=== PATIENT | male | born 1955 | race Caucasian/White ===

== ENCOUNTER 2016-08-31 02:08 | Emergency (ER) | payer OTHER ==
--- NOTE | 2016-08-31 02:38 | ED ---
Abdominal Pain HPI - General Chief Complaint: Abdominal Pain Stated Complaint: Back pain Time Seen by Provider: 08/31/16 02:21 Source: patient, RN notes reviewed Mode of arrival: ambulatory Limitations: no limitations - History of Present Illness Initial Comments: Patient is a 60-year-old male presents emergency room for evaluation of right- sided flank pain. Patient states he has a history of kidney stones. Patient states this feels similar to kidney stone. Patient states that last time he is in the emergency room he thought he had kidney stone pain but it was constipation. Patient states this pain does feel similar also. Patient states he has a normal bowel movement every morning. Patient states he had a normal bowel movement this morning. Patient denies trouble urinating, pain or burning during urination or blood in urine. Patient states when he woke up this morning he was having 10 out of 10 right-sided flank pain. Patient states the pain is now about a 1 out of 10 pain. Patient denies nausea or vomiting. Patient denies abdominal pain. Patient denies chest pain or shortness of breath. Patient denies headache or dizziness. Patient denies fevers or chills. - Related Data Home Medications Medication Instructions Recorded Confirmed Finasteride 5 mg PO DAILY 02/17/14 08/31/16 Risedronate Sodium [Actonel] 35 mg PO Q7DAYS 02/17/14 08/31/16 Allopurinol [Zyloprim] 300 mg PO DAILY 04/03/14 08/31/16 Escitalopram [Lexapro] 10 mg PO DAILY 04/03/14 08/31/16 Previous Rx's Medication Instructions Recorded Tamsulosin HCl [Flomax] 0.4 mg PO DAILY #30 cap 02/03/15 Allergies Allergy/AdvReac Type Severity Reaction Status Date / Time iodine Allergy Rash/Hives Verified 04/20/16 06:22 paper tape Allergy Rash/Hives Uncoded 04/20/16 06:22 Review of Systems ROS Statement: Those systems with pertinent positive or pertinent negative responses have been documented in the HPI. ROS Other: All systems not noted in ROS Statement are negative. Past Medical History Past Medical History: COPD, Pneumonia Additional Past Medical History / Comment(s): emphysema, kidney stones, osteoporosis, recent pneumonia History of Any Multi-Drug Resistant Organisms: None Reported Past Surgical History: Hernia Repair Additional Past Surgical History / Comment(s): vasectomy Past Anesthesia/Blood Transfusion Reactions: No Reported Reaction Past Psychological History: No Psychological Hx Reported Smoking Status: Current every day smoker Past Alcohol Use History: None Reported Past Drug Use History: None Reported General Exam - General Exam Comments Initial Comments: Sitting in exam room in no acute distress. Limitations: no limitations General appearance: alert, in no apparent distress Head exam: Present: atraumatic, normocephalic, normal inspection Eye exam: Present: normal appearance ENT exam: Present: normal exam Neck exam: Present: normal inspection Respiratory exam: Present: normal lung sounds bilaterally. Absent: respiratory distress Cardiovascular Exam: Present: regular rate, normal rhythm, normal heart sounds GI/Abdominal exam: Present: soft, normal bowel sounds. Absent: distended, tenderness, guarding, rebound, rigid Extremities exam: Present: normal inspection Back exam: Present: normal inspection, CVA tenderness (R). Absent: CVA tenderness (L) Neurological exam: Present: alert, oriented X3, CN II-XII intact, normal gait Psychiatric exam: Present: normal affect, normal mood Skin exam: Present: warm, dry, intact, normal color. Absent: rash Course Vital Signs 08/31/16 02:12 Temperature 97.0 F L Pulse Rate 60 Respiratory 18 Rate Blood Pressure 123/62 O2 Sat by Pulse 94 L Oximetry Medical Decision Making - Medical Decision Making Patient is a 60-year-old male presents to the emergency room for evaluation right-sided flank pain. Labs show no concerning findings. Urinalysis showed no concerning findings. KUB x-ray significant for mild amount of fecal material in the colon. Will place patient on magnesium citrate for constipation. Advised patient to follow-up with his primary care provider for reevaluation. Patient states he understands everything that was discussed with him. Return parameters discussed. Case discussed with Dr. Maxwell. - Lab Data Result diagrams: 08/31/16 03:42 08/31/16 03:42 Lab Results 08/31/16 08/31/16 08/31/16 Range/Units 03:42 03:42 03:42 WBC 6.3 (3.8-10.6) k/uL RBC 4.21 L (4.30-5.90) m/uL Hgb 14.4 (13.0-17.5) gm/dL Hct 41.5 (39.0-53.0) % MCV 98.5 (80.0-100.0) fL MCH 34.2 (25.0-35.0) pg MCHC 34.7 (31.0-37.0) g/dL RDW 13.2 (11.5-15.5) % Plt Count 136 L (150-450) k/uL Neutrophils % 70 % Lymphocytes % 18 % Monocytes % 5 % Eosinophils % 3 % Basophils % 1 % Neutrophils # 4.4 (1.3-7.7) k/uL Lymphocytes # 1.1 (1.0-4.8) k/uL Monocytes # 0.3 (0-1.0) k/uL Eosinophils # 0.2 (0-0.7) k/uL Basophils # 0.0 (0-0.2) k/uL Sodium 138 (137-145) mmol/L Potassium 4.1 (3.5-5.1) mmol/L Chloride 105 (98-107) mmol/L Carbon Dioxide 26 (22-30) mmol/L Anion Gap 7 mmol/L BUN 15 (9-20) mg/dL Creatinine 0.70 (0.66-1.25) mg/dL Est GFR (MDRD) Af Amer >60 (>60 ml/min/1.73 sqM) Est GFR (MDRD) Non-Af >60 (>60 ml/min/1.73 sqM) Glucose 95 (74-99) mg/dL Calcium 9.0 (8.4-10.2) mg/dL Total Bilirubin 0.4 (0.2-1.3) mg/dL AST 17 (17-59) U/L ALT 33 (21-72) U/L Alkaline Phosphatase 48 (38-126) U/L Total Protein 5.9 L (6.3-8.2) g/dL Albumin 3.6 (3.5-5.0) g/dL Urine Color Light Yellow Urine Appearance Clear (Clear) Urine pH 6.5 (5.0-8.0) Ur Specific [place] 1.008 (1.001-1.035) Urine Protein Negative (Negative) Urine Glucose (UA) Negative (Negative) Urine Ketones Negative (Negative) Urine Blood Negative (Negative) Urine Nitrate Negative (Negative) Urine Bilirubin Negative (Negative) Urine Urobilinogen <2.0 (<2.0) mg/dL Ur Leukocyte Esterase Negative (Negative) - Radiology Data Radiology results: report reviewed, image reviewed Disposition Clinical Impression: Constipation Disposition: HOME SELF-CARE Condition: Good Instructions: Constipation (ED), High Fiber Diet (ED) Additional Instructions: Drink plenty of water. Take magnesium citrate. Please follow up with primary care provider in 1-2 days. If any new symptom arises or symptoms worsen, return to ER as soon as possible. Referrals: Conner Diaz MD [Primary Care Provider] - 1-2 days Time of Disposition: 04:24
--- NOTE | 2016-08-31 03:22 | XR ---
EXAM: XR Abdomen, 1 View. CLINICAL HISTORY: Reason: pain TECHNIQUE: Frontal upright views of the abdomen/pelvis. COMPARISON: 04/20/16 plain films. FINDINGS: Gastrointestinal tract: There is again a [place] amount of stool present, without grossly dilated bowel loops nor free air seen on these upright images. Bones: Bones are stable including mild smoothly marginated depression of the L2 superior endplate. No acute fracture. IMPRESSION: No significant change since 04/20/16 exam, as above.
[2016-08-31 04:02] LABS: Basophils % (A) 1 %; CH 33.4; CHCM 34.1; Eosinophils # (A) 0.2 k/uL (0-0.7); Eosinophils % (A) 3 %; HCT 41.5 % (39.0-53.0); HDW 2.02; HGB 14.4 gm/dL (13.0-17.5); Luc % (Auto) 3; Lymphocytes # (A) 1.1 k/uL (1.0-4.8); Lymphocytes % (A) 18 %; MCH 34.2 pg (25.0-35.0); MCHC 34.7 g/dL (31.0-37.0); MCV 98.5 fL (80.0-100.0); Mean Platelet Volume 8.2; Monocytes # (A) 0.3 k/uL (0-1.0); Monocytes % (A) 5 %; Neutrophils # (A) 4.4 k/uL (1.3-7.7); Neutrophils % (A) 70 %; RBC 4.21 m/uL (4.30-5.90); RDW 13.2 % (11.5-15.5); WBC 6.3 k/uL (3.8-10.6); WBC (Perox) 6.32
[2016-08-31 04:07] LABS: Appearance,Urine Clear (Clear); Bilirubin,Urine Negative (Negative); Glucose,Urine (UA) Negative (Negative); Ketones,Urine Negative (Negative); Leukocyte Esterase,Urine Negative (Negative); Nitrite,Urine Negative (Negative); PH, Urine 6.5 (5.0-8.0); Protein,Urine Negative (Negative); Specific Gravity,Urine 1.008 (1.001-1.035); UA Billing (MACRO vs. MICRO) CHEM; Urobilinogen,Urine <2.0 mg/dL (<2.0)
[2016-08-31 04:13] LABS: ALT 33 U/L (21-72); AST 17 U/L (17-59); Alkaline Phosphatase 48 U/L (38-126); Anion Gap 7 mmol/L; Blood Urea Nitrogen 15 mg/dL (9-20); Carbon Dioxide 26 mmol/L (22-30); Chloride 105 mmol/L (98-107); Glucose 95 mg/dL (74-99); Non-African American GFR(MDRD) >60 (>60 ml/min/1.73 sqM); Potassium 4.1 mmol/L (3.5-5.1); Sodium 138 mmol/L (137-145); Total Bilirubin 0.4 mg/dL (0.2-1.3); Total Protein 5.9 g/dL (6.3-8.2)
[2016-08-31] MEDS ORDERED: MAGNESIUM CITRATE 296 ML BOTTLE PO ONE (04:24)
[2016-08-31] MEDS ORDERED: KETOROLAC 30 MG/ML 1 ML VIAL IVP STA (04:28)
[2016-08-31 04:47] VITALS: BP 126/74; PULSE 61; RESP 16; TEMP 97.2
== END 2016-08-31 04:47 | disposition home or self-care (01) ==
LOC: EC 02:08
DX: K59.00 Constipation, unspecified (principal); J44.9 Chronic obstructive pulmonary disease, unspecified; Z91.048 Other nonmedicinal substance allergy status; Z79.899 Other long term (current) drug therapy; F17.200 Nicotine dependence, unspecified, uncomplicated; Z87.01 Personal history of pneumonia (recurrent); Z87.442 Personal history of urinary calculi
CPT/HCPCS: 36415; 80053; 85025; 81003; 74000; 99284; 96374; J1885

== ENCOUNTER → 2017-03-20 | Outpatient (CLI) | payer OTHER ==
[2017-03-20 16:31] LABS: Anion Gap 8 mmol/L; Blood Urea Nitrogen 13 mg/dL (9-20); Calcium 8.9 mg/dL (8.4-10.2); Carbon Dioxide 25 mmol/L (22-30); Chloride 102 mmol/L (98-107); Glucose 75 mg/dL (74-99); Magnesium 1.9 mg/dL (1.6-2.3); Non-African American GFR(MDRD) >60 (>60 ml/min/1.73 sqM); Potassium 4.2 mmol/L (3.5-5.1); Sodium 135 mmol/L (137-145); Uric Acid 3.3 mg/dL (3.5-8.5)
[2017-03-20 17:19] LABS: Hepatitis C Virus IgG Ab Negative (Negative); Hepatitis C Virus IgG Index 0.01
[2017-03-20 17:30] LABS: Prostate Specific Antigen 0.28 ng/mL (0.00-4.00)
== END ==
LOC: LABWHC1 15:23
PROVIDERS: ATTEND Family Medicine
DX: K59.00 Constipation, unspecified (principal); F41.9 Anxiety disorder, unspecified; M54.89 Other dorsalgia; M85.80 Other specified disorders of bone density and structure, unspecified site; B36.9 Superficial mycosis, unspecified
CPT/HCPCS: 36415; 80048; 82306; 83735; 84153; 84443; 84550; 86803

== ENCOUNTER → 2017-03-23 | Outpatient (CLI) | payer OTHER ==
--- NOTE | 2017-03-23 16:35 | BD ---
EXAMINATION TYPE: MG DEXA axial skeleton. DATE OF EXAM: 03/23/2017 COMPARISON: NONE CLINICAL HISTORY: 61-year-old male M85.80 DISORDER OF BONE DENSITY AND STRUCTURE Height: 5 FT 8 IN Weight: 130 FRAX RISK QUESTIONS: Alcohol (3 or more units per day): NO Family History (Parent hip fracture): YES Glucocorticoids (More than 3mos): NO (Ex: prednisone, prednisolone, methylprednisolone, dexamethasone, and hydrocortisone). History of Fracture in Adulthood: YES Secondary Osteoporosis: 1. Type 1 Diabetes: NO 2. Hyperthyroidism: NO 3. Menopause before 45: NA 4. Malnutrition: NO 5. Chronic liver disease: NO Rheumatoid Arthritis: NO Current Tobacco Use: YES RISK FACTORS HISTORY OF: History of Wrist Fracture: RT WRIST When: 1992 Active: YES MEDICATIONS: Osteoporosis Medications: YES Which medication: ACTONEL How Lon YRS Additional Medications: VIT D ,FENOSTAT,ACTONEL,FLOMAX, ANTI DEPRESSANT, ALLPURINAL Additional History: FRACTURED RT TIB/FIB 2011 EXAM MEASUREMENTS: Bone mineral densitometry was performed using the [employer] System. Bone mineral density as measured about the Lumbar spine is: ----- L1-L4(G/cm2): 0.772 T Score Values are as follows: ----- L2: -3.0 ----- L3: -3.0 ----- L4: -3.8 ----- L1-L4: -3.4 Bone mineral density has: Decreased -1.7 % since study of: 2013 Bone mineral density about the R hip (g/cm2): 0.721 Bone mineral density about the L hip (g/cm2): 0.714 T Score values are as follows: -----R Neck: -2.3 -----L Neck: -2.3 -----R Total: -3.0 -----L Total: -2.7 Bone mineral density has: Decreased -0.5% since study of: 2013 IMPRESSION: Osteoporosis (T Score less than -2.5) as noted by T Score values at the There is increased fracture risk and therapy is usually indicated based on age. Re-Screen 1-2 years. NOTE: T-SCORE=SD OF THE YOUNG ADULT MEAN.
== END | disposition home or self-care (01) ==
LOC: RADBDWWP 15:34
PROVIDERS: ATTEND Family Medicine
DX: M81.0 Age-related osteoporosis without current pathological fracture (principal)
CPT/HCPCS: 77080

== ENCOUNTER 2017-07-12 06:49 | Emergency (ER) | payer OTHER ==
[2017-07-12] MEDS ORDERED: HYDROcodone/APAP 5-325MG 1 EACH TAB PO STA (07:45)
[2017-07-12] MEDS ORDERED: KETOROLAC 60 MG/2 ML VIAL IM STA (07:45)
[2017-07-12] MEDS ORDERED: HYDROmorphone 2 MG/ML 1 ML SYRINGE IM STA (08:42)
--- NOTE | 2017-07-12 08:42 | ED ---
General Adult HPI - General Chief complaint: Back Pain/Injury Stated complaint: lower back pain Time Seen by Provider: 07/12/17 07:15 Source: patient, RN notes reviewed, old records reviewed Mode of arrival: ambulatory Limitations: no limitations - History of Present Illness Initial comments: This is a 61-year-old male the ER for evaluation regarding back pain. Chronic back pain. No recent injury or trauma. Patient states he was at work today had severe spasm in his lower back unable to walk unable to ambulate, severely increasing pain. No loss of bowel or bladder no neurological deficit. Patient has no modifying factors for pain. He states it is coming down is not moving around. Patient denies any recent fevers - Related Data Home Medications Medication Instructions Recorded Confirmed Finasteride 5 mg PO DAILY 02/17/14 07/12/17 Risedronate Sodium [Actonel] 35 mg PO [place] 02/17/14 07/12/17 Allopurinol [Zyloprim] 300 mg PO DAILY 04/03/14 07/12/17 Escitalopram [Lexapro] 10 mg PO DAILY 04/03/14 07/12/17 Cholecalciferol (Vitamin D3) 2,000 unit PO DAILY 07/12/17 07/12/17 [Vitamin D3] Docusate [Colace] 100 mg PO DAILY 07/12/17 07/12/17 Gabapentin (Unknown Dose) 1 tab PO ONCE 07/12/17 07/12/17 Previous Rx's Medication Instructions Recorded Tamsulosin HCl [Flomax] 0.4 mg PO DAILY #30 cap 02/03/15 Allergies Allergy/AdvReac Type Severity Reaction Status Date / Time iodine Allergy Rash/Hives Verified 07/12/17 08:00 paper tape Allergy Rash/Hives Uncoded 07/12/17 07:07 Review of Systems ROS Statement: Those systems with pertinent positive or pertinent negative responses have been documented in the HPI. ROS Other: All systems not noted in ROS Statement are negative. Past Medical History Past Medical History: COPD, Pneumonia Additional Past Medical History / Comment(s): emphysema, kidney stones, osteoporosis, recent pneumonia History of Any Multi-Drug Resistant Organisms: None Reported Past Surgical History: Hernia Repair Additional Past Surgical History / Comment(s): vasectomy Past Anesthesia/Blood Transfusion Reactions: No Reported Reaction Past Psychological History: No Psychological Hx Reported Smoking Status: Current every day smoker Past Alcohol Use History: None Reported Past Drug Use History: None Reported General Exam Limitations: no limitations Course Vital Signs 07/12/17 07:02 Temperature 97 F L Pulse Rate 64 Respiratory 18 Rate Blood Pressure 99/64 O2 Sat by Pulse 98 Oximetry - Reevaluation(s) Reevaluation #1: 07/12/17 08:42 Patient is still having back pain after initial medications Reevaluation #2: 07/12/17 08:42 Patient's pain is now improved Medical Decision Making - Medical Decision Making 58 female the ER for evaluation regarding severe back pain. Acute on chronic back pain. At this point patient has adequate pain relief and can be discharged home Disposition Clinical Impression: Mechanical back pain, Strain of lumbar region Disposition: HOME SELF-CARE Condition: Good Instructions: Chronic Back Pain (ED), Acute Low Back Pain (ED) Referrals: Conner Diaz MD [Primary Care Provider] - 1-2 days
[2017-07-12 09:04] VITALS: RESP 16
[2017-07-12 09:39] VITALS: BP 116/58; PULSE 69; TEMP 97.9
== END 2017-07-12 09:38 | disposition home or self-care (01) ==
LOC: EC 06:49
DX: S39.012A Strain of muscle, fascia and tendon of lower back, initial encounter (principal); F17.200 Nicotine dependence, unspecified, uncomplicated; Z79.899 Other long term (current) drug therapy; Z91.048 Other nonmedicinal substance allergy status; Z88.8 Allergy status to other drugs, medicaments and biological substances
CPT/HCPCS: 99284; 96372 ×2; J1170; J1885

== ENCOUNTER → 2017-08-09 | Outpatient (CLI) | payer OTHER ==
--- NOTE | 2017-08-10 09:18 | XR ---
EXAM TYPE: LUMBAR SPINE X RAY SERIES COMPARISON: NONE HISTORY: Chronic lower back pain TECHNIQUE: 4 views are submitted. FINDINGS: Alignment is anatomic. The pedicles are intact. The transverse processes are intact. There is no s pondylolysis or spondylolisthesis. There is a compression fracture of L2 superior endplate likely ch ronic. Degenerative disc disease at L1-L2, L4-5 and L5-S1 with facet arthropathy. Diffuse osteopenia noted. IMPRESSION: 1. Multilevel degenerative disc disease. 2. Probable chronic superior endplate compression fracture L2. Correlate with MRI as clinically warra nted.
== END | disposition home or self-care (01) ==
LOC: RADXRMAIN 15:24
PROVIDERS: ATTEND Family Medicine
DX: M51.16 Intervertebral disc disorders with radiculopathy, lumbar region (principal)
CPT/HCPCS: 72110

== ENCOUNTER → 2017-08-14 | Outpatient (CLI) | payer OTHER ==
[2017-08-14 16:36] LABS: Calcium 9.6 mg/dL (8.4-10.2)
== END | disposition home or self-care (01) ==
LOC: LABWHC1 15:33
PROVIDERS: ATTEND Family Medicine
DX: M81.0 Age-related osteoporosis without current pathological fracture (principal)
CPT/HCPCS: 36415; 82310; 82565

== ENCOUNTER → 2017-09-21 | Outpatient (CLI) | payer OTHER ==
[~2017-09-21] MED LIST: EPINEPHrine 1 MG/ML 1 ML AMP SQ PRN; HYDROCORTISONE SUCCINATE 100 MG/2 ML VIAL IV PRN; SODIUM CHLORIDE 0.9% 500 ML in EMPTY BAG 1 BAG IV PRN; ZOLEDRONIC ACID 5 MG in SODIUM CHLORIDE 0.9% 100 ML IV NR; diphenhydrAMINE 50 MG/ML 1 ML VIAL IVP NR
[2017-09-21 15:34] VITALS: BP 114/68; PULSE 58; RESP 16; TEMP 97.5
== END | disposition home or self-care (01) ==
LOC: PROCWHC3 15:23
PROVIDERS: ATTEND Family Medicine
DX: M81.0 Age-related osteoporosis without current pathological fracture (principal); Z91.048 Other nonmedicinal substance allergy status
CPT/HCPCS: 96365; J3489

== ENCOUNTER → 2017-12-20 | Outpatient (CLI) | payer OTHER ==
[2017-12-20 16:19] LABS: Basophils % (A) 1 %; Eosinophils # (A) 0.2 k/uL (0-0.7); Eosinophils % (A) 4 %; HCT 41.7 % (39.0-53.0); HGB 13.9 gm/dL (13.0-17.5); Lymphocytes # (A) 1.6 k/uL (1.0-4.8); Lymphocytes % (A) 34 %; MCH 33.3 pg (25.0-35.0); MCHC 33.3 g/dL (31.0-37.0); MCV 100.1 fL (80.0-100.0); Mean Platelet Volume 7.5; Monocytes # (A) 0.3 k/uL (0-1.0); Monocytes % (A) 7 %; Neutrophils # (A) 2.3 k/uL (1.3-7.7); Neutrophils % (A) 51 %; Platelet Count 169 k/uL (150-450); RBC 4.16 m/uL (4.30-5.90); RDW 13.4 % (11.5-15.5); WBC 4.6 k/uL (3.8-10.6)
[2017-12-20 16:34] LABS: ALT 27 U/L (21-72); AST 18 U/L (17-59); Albumin 3.8 g/dL (3.5-5.0); Alkaline Phosphatase 45 U/L (38-126); Anion Gap 8 mmol/L; Blood Urea Nitrogen 14 mg/dL (9-20); Calcium 8.9 mg/dL (8.4-10.2); Carbon Dioxide 27 mmol/L (22-30); Chloride 100 mmol/L (98-107); Glucose 101 mg/dL (74-99); Potassium 4.6 mmol/L (3.5-5.1); Sodium 135 mmol/L (137-145); Total Bilirubin 0.4 mg/dL (0.2-1.3); Total Protein 5.9 g/dL (6.3-8.2)
[2017-12-20 16:49] LABS: T4, Free (Free Thyroxine) 1.18 ng/dL (0.78-2.19)
== END | disposition home or self-care (01) ==
LOC: LABWHC1 15:26
PROVIDERS: ATTEND Family Medicine
DX: J44.9 Chronic obstructive pulmonary disease, unspecified (principal); Z79.899 Other long term (current) drug therapy
CPT/HCPCS: 36415; 80053; 82306; 83655; 84439; 84443; 85025

== ENCOUNTER 2018-05-11 11:04 | Emergency (ER) | payer OTHER ==
[2018-05-11 11:55] VITALS: RESP 18; TEMP 97.5
[2018-05-11] MEDS ORDERED: SODIUM CHLORIDE 0.9% 1,000 ML IV STA (12:27)
--- NOTE | 2018-05-11 12:46 | ED ---
General Adult HPI - General Chief complaint: Dizziness Stated complaint: near syncope Time Seen by Provider: 05/11/18 12:09 Source: patient, RN notes reviewed Mode of arrival: EMS Limitations: no limitations - History of Present Illness Initial comments: Patient 62-year-old male presenting to the emergency room today with a chief complaint of abdominal pain that started this morning when he was at work. He does admit to a sharp pain located middle of the abdomen. He states that he went and sat on his bosses office. He states he got diaphoretic and felt lightheaded. He states that he did pass gas which made him feel better. He states he then had a bowel movement was loose. He states it did make him feel better. He states is unsure if assault that he ate last night. He states pain is improved at this time. Patient denies any other complaints or symptoms currently. Patient denies any recent fever, chills, shortness of breath, chest pain, back pain, vomiting, numbness or tingling, dysuria or hematuria, constipation, headaches or visual changes, or any other complaints. - Related Data Home Medications Medication Instructions Recorded Confirmed Finasteride 5 mg PO DAILY 02/17/14 05/11/18 Allopurinol [Zyloprim] 300 mg PO DAILY 04/03/14 05/11/18 Escitalopram [Lexapro] 10 mg PO DAILY 04/03/14 05/11/18 Cholecalciferol (Vitamin D3) 2,000 unit PO DAILY 07/12/17 05/11/18 [Vitamin D3] Docusate [Colace] 100 mg PO DAILY 07/12/17 05/11/18 Calcium Carbonate [Tums] 1,000 mg PO DAILY 05/11/18 05/11/18 Previous Rx's Medication Instructions Recorded Tamsulosin HCl [Flomax] 0.4 mg PO DAILY #30 cap 02/03/15 Allergies Allergy/AdvReac Type Severity Reaction Status Date / Time iodine Allergy Rash/Hives Verified 05/11/18 11:32 paper tape Allergy Rash/Hives Uncoded 09/21/17 15:26 Review of Systems ROS Statement: Those systems with pertinent positive or pertinent negative responses have been documented in the HPI. ROS Other: All systems not noted in ROS Statement are negative. Past Medical History Past Medical History: COPD, Pneumonia Additional Past Medical History / Comment(s): emphysema, kidney stones, osteoporosis, recent pneumonia History of Any Multi-Drug Resistant Organisms: None Reported Past Surgical History: Hernia Repair Additional Past Surgical History / Comment(s): vasectomy Past Anesthesia/Blood Transfusion Reactions: No Reported Reaction Past Psychological History: No Psychological Hx Reported Smoking Status: Current every day smoker Past Alcohol Use History: None Reported Past Drug Use History: None Reported General Exam - General Exam Comments Initial Comments: General: The patient is awake and alert, in no distress, and does not appear acutely ill. Eye: Pupils are equal, round and reactive to light. Extra-ocular movements are intact. No nystagmus. There is normal conjunctiva bilaterally. No signs of icterus. Ears, nose, mouth and throat: There are moist mucous membranes and no oral lesions. Neck: The neck is supple, there is no tenderness or JVD. Cardiovascular: There is a regular rate and rhythm. No murmur, rub or gallop is appreciated. Respiratory: Lungs are clear to auscultation, respirations are non-labored, breath sounds are equal. No wheezes, stridor, rales, or rhonchi. Gastrointestinal: Soft, non-distended, non-tender abdomen without masses or organomegaly noted. There is no rebound or guarding present. No CVA tenderness. Bowel sounds are unremarkable. Musculoskeletal: Normal ROM, no tenderness. Sensation intact. Strength 5/5. Pulses equal bilaterally 2+. Neurological: A&O x 3. CN II-XII intact, There are no obvious motor or sensory deficits. Coordination appears grossly intact. Speech is normal. Skin: Skin is warm and dry and no rashes or lesions are noted. Psychiatric: Cooperative, appropriate mood & affect, normal judgment. Limitations: no limitations Course Vital Signs 05/11/18 05/11/18 11:51 14:33 Temperature 97.5 F L Pulse Rate 60 66 Respiratory 18 18 Rate Blood Pressure 111/74 120/79 O2 Sat by Pulse 98 98 Oximetry EKG Findings - EKG Comments: EKG Findings:: EKG performed at 1315. A 12-lead EKG was performed and shows the following: Rate is 61, and rhythm is normal sinus. There are normal QRS complexes and normal R-wave progression. ST segments have no elevation or depression, and NH segments appear normal. Medical Decision Making - Medical Decision Making Patient reexamined at this time shows no signs of distress. Resting couple. Patient's labs been reviewed. Patient's CT of abdomen and pelvis shows enteritis with a right-sided scrotal hydrocele. Results were discussed with the patient. Chest x-ray reviewed shows evidence for COPD. Patient denies any increased cough congestion. Has normal white count. No fever here in the emergency room. This time or for pneumonia. Is advised follow-up the family doctor next 2 days. - Lab Data Result diagrams: 05/11/18 12:35 05/11/18 12:35 Lab Results 05/11/18 05/11/18 05/11/18 Range/Units 12:35 12:35 12:35 WBC 7.2 (3.8-10.6) k/uL RBC 4.00 L (4.30-5.90) m/uL Hgb 13.8 (13.0-17.5) gm/dL Hct 40.1 (39.0-53.0) % MCV 100.3 H (80.0-100.0) fL MCH 34.4 (25.0-35.0) pg MCHC 34.3 (31.0-37.0) g/dL RDW 13.0 (11.5-15.5) % Plt Count 137 L (150-450) k/uL Neutrophils % 78 % Lymphocytes % 14 % Monocytes % 5 % Eosinophils % 2 % Basophils % 0 % Neutrophils # 5.6 (1.3-7.7) k/uL Lymphocytes # 1.0 (1.0-4.8) k/uL Monocytes # 0.3 (0-1.0) k/uL Eosinophils # 0.1 (0-0.7) k/uL Basophils # 0.0 (0-0.2) k/uL PT (9.0-12.0) sec INR (<1.2) APTT (22.0-30.0) sec Sodium 134 L (137-145) mmol/L Potassium 4.1 (3.5-5.1) mmol/L Chloride 103 (98-107) mmol/L Carbon Dioxide 24 (22-30) mmol/L Anion Gap 7 mmol/L BUN 12 (9-20) mg/dL Creatinine 0.67 (0.66-1.25) mg/dL Est GFR (CKD-EPI)AfAm >90 (>60 ml/min/1.73 sqM) Est GFR (CKD-EPI)NonAf >90 (>60 ml/min/1.73 sqM) Glucose 97 (74-99) mg/dL Calcium 8.7 (8.4-10.2) mg/dL Total Bilirubin 0.5 (0.2-1.3) mg/dL AST 17 (17-59) U/L ALT 25 (21-72) U/L Alkaline Phosphatase 44 (38-126) U/L Total Creatine Kinase 43 L (55-170) U/L CK-MB (CK-2) 0.7 (0.0-2.4) ng/mL CK-MB (CK-2) Rel Index 1.6 Troponin I <0.012 (0.000-0.034) ng/mL Total Protein 5.9 L (6.3-8.2) g/dL Albumin 3.4 L (3.5-5.0) g/dL Amylase 44 (30-110) U/L Urine Color Urine Appearance (Clear) Urine pH (5.0-8.0) Ur Specific [place] (1.001-1.035) Urine Protein (Negative) Urine Glucose (UA) (Negative) Urine Ketones (Negative) Urine Blood (Negative) Urine Nitrite (Negative) Urine Bilirubin (Negative) Urine Urobilinogen (<2.0) mg/dL Ur Leukocyte Esterase (Negative) 05/11/18 05/11/18 Range/Units 12:35 13:30 WBC (3.8-10.6) k/uL RBC (4.30-5.90) m/uL Hgb (13.0-17.5) gm/dL Hct (39.0-53.0) % MCV (80.0-100.0) fL MCH (25.0-35.0) pg MCHC (31.0-37.0) g/dL RDW (11.5-15.5) % Plt Count (150-450) k/uL Neutrophils % % Lymphocytes % % Monocytes % % Eosinophils % % Basophils % % Neutrophils # (1.3-7.7) k/uL Lymphocytes # (1.0-4.8) k/uL Monocytes # (0-1.0) k/uL Eosinophils # (0-0.7) k/uL Basophils # (0-0.2) k/uL PT 10.0 (9.0-12.0) sec INR 1.0 (<1.2) APTT 22.6 (22.0-30.0) sec Sodium (137-145) mmol/L Potassium (3.5-5.1) mmol/L Chloride (98-107) mmol/L Carbon Dioxide (22-30) mmol/L Anion Gap mmol/L BUN (9-20) mg/dL Creatinine (0.66-1.25) mg/dL Est GFR (CKD-EPI)AfAm (>60 ml/min/1.73 sqM) Est GFR (CKD-EPI)NonAf (>60 ml/min/1.73 sqM) Glucose (74-99) mg/dL Calcium (8.4-10.2) mg/dL Total Bilirubin (0.2-1.3) mg/dL AST (17-59) U/L ALT (21-72) U/L Alkaline Phosphatase (38-126) U/L Total Creatine Kinase (55-170) U/L CK-MB (CK-2) (0.0-2.4) ng/mL CK-MB (CK-2) Rel Index Troponin I (0.000-0.034) ng/mL Total Protein (6.3-8.2) g/dL Albumin (3.5-5.0) g/dL Amylase (30-110) U/L Urine Color Yellow Urine Appearance Clear (Clear) Urine pH 6.5 (5.0-8.0) Ur Specific [place] 1.008 (1.001-1.035) Urine Protein Negative (Negative) Urine Glucose (UA) Negative (Negative) Urine Ketones Negative (Negative) Urine Blood Negative (Negative) Urine Nitrite Negative (Negative) Urine Bilirubin Negative (Negative) Urine Urobilinogen <2.0 (<2.0) mg/dL Ur Leukocyte Esterase Negative (Negative) Disposition Clinical Impression: Acute diarrhea, Abdominal pain Disposition: HOME SELF-CARE Condition: Good Instructions: Abdominal Pain (ED) Additional Instructions: Please use medication as discussed. Please follow-up with family doctor in the next 2 days. Please return to emergency room if the symptoms increase or worsen or for any other concerns. Is patient prescribed a controlled substance at d/c from ED?: No Referrals: Conner Diaz MD [Primary Care Provider] - 1-2 days Time of Disposition: 14:50
[2018-05-11] MEDS ORDERED: methylPREDNISolone SOD SUCCI 125 MG/2 ML VIAL IV STA (12:57)
[2018-05-11] MEDS ORDERED: FAMOTIDINE 20 MG/2 ML VIAL IV STA (12:57)
[2018-05-11] MEDS ORDERED: diphenhydrAMINE 50 MG CAP PO STA (12:57)
[2018-05-11 13:00] LABS: Basophils % (A) 0 %; Eosinophils # (A) 0.1 k/uL (0-0.7); Eosinophils % (A) 2 %; HCT 40.1 % (39.0-53.0); HGB 13.8 gm/dL (13.0-17.5); Lymphocytes % (A) 14 %; MCH 34.4 pg (25.0-35.0); MCHC 34.3 g/dL (31.0-37.0); MCV 100.3 fL (80.0-100.0); Mean Platelet Volume 7.6; Monocytes # (A) 0.3 k/uL (0-1.0); Monocytes % (A) 5 %; Neutrophils # (A) 5.6 k/uL (1.3-7.7); Neutrophils % (A) 78 %; Platelet Count 137 k/uL (150-450); WBC 7.2 k/uL (3.8-10.6)
[2018-05-11 13:07] LABS: ALT 25 U/L (21-72); AST 17 U/L (17-59); Albumin 3.4 g/dL (3.5-5.0); Alkaline Phosphatase 44 U/L (38-126); Amylase 44 U/L (30-110); Anion Gap 7 mmol/L; Blood Urea Nitrogen 12 mg/dL (9-20); Calcium 8.7 mg/dL (8.4-10.2); Carbon Dioxide 24 mmol/L (22-30); Chloride 103 mmol/L (98-107); Glucose 97 mg/dL (74-99); Potassium 4.1 mmol/L (3.5-5.1); Sodium 134 mmol/L (137-145); Total Bilirubin 0.5 mg/dL (0.2-1.3); Total Protein 5.9 g/dL (6.3-8.2)
[2018-05-11 13:19] LABS: Creatine Kinase 43 U/L (55-170)
[2018-05-11 13:28] LABS: Partial Thromboplastin Time 22.6 sec (22.0-30.0)
[2018-05-11 13:32] LABS: Creatine Kinase MB 0.7 ng/mL (0.0-2.4); Troponin I <0.012 ng/mL (0.000-0.034)
[2018-05-11 13:37] LABS: Appearance,Urine Clear (Clear); Bilirubin,Urine Negative (Negative); Blood,Urine Negative (Negative); Color,Urine Yellow; Glucose,Urine (UA) Negative (Negative); Ketones,Urine Negative (Negative); Leukocyte Esterase,Urine Negative (Negative); Nitrite,Urine Negative (Negative); PH, Urine 6.5 (5.0-8.0); Protein,Urine Negative (Negative); Specific Gravity,Urine 1.008 (1.001-1.035); Urobilinogen,Urine <2.0 mg/dL (<2.0)
--- NOTE | 2018-05-11 14:13 | XR ---
EXAMINATION TYPE: XR chest 2V DATE OF EXAM: 05/11/2018 COMPARISON: 03/29/2016 TECHNIQUE: PA and lateral views submitted. HISTORY: Dizziness FINDINGS: The lungs are clear and there is no pneumothorax, pleural effusion, or focal pneumonia. Hyperinflat ion suggests COPD. Degenerative change of the spine noted. Vague subsegmental linear changes involvin g the hilum are noted. IMPRESSION: 1. COPD. Perihilar changes felt to be most typical of atelectasis correlate clinically to exclude ear ly infiltrate.
--- NOTE | 2018-05-11 14:23 | CT ---
EXAMINATION TYPE: CT abdomen pelvis w con DATE OF EXAM: 05/11/2018 COMPARISON: 10/13/2015 HISTORY: Pain CONTRAST: [id number]. Contrast enhanced CT of the abdomen and pelvis was performed. GI contrast was not utilized. FINDINGS: LUNG BASES-: No visible nodule. No infiltrate. LIVER/GB: No calcified gallstones. No solid space occupying hepatic lesion. Small hepatic cysts ar e noted. Biliary tree is of normal caliber. PANCREAS: No inflammation. No distinct mass. SPLEEN: No splenic enlargement. No lesion seen. ADRENALS: No nodule. No thickening. KIDNEYS/BLADDER: No hydronephrosis. No nephrolithiasis. No distinct solid renal mass. Stable frank l cystic changes. Urinary bladder grossly unremarkable. BOWEL: Normal appendix. Mild small bowel distention and wall thickening may reflect enteritis. GENITAL ORGANS: No gross abnormality. LYMPH NODES: No greater than 1cm abdominal or pelvic lymph nodes are appreciated. AORTA: No significant abnormality. OSSEOUS STRUCTURES: No significant abnormality is seen. OTHER: Scrotal hydrocele incidentally noted. IMPRESSION: 1. Correlate for mild small bowel enteritis. 2. Right scrotal hydrocele.
[2018-05-11 14:34] VITALS: BP 120/79; PULSE 66
== END 2018-05-11 15:02 | disposition home or self-care (01) ==
LOC: EC 11:04
DX: R19.7 Diarrhea, unspecified (principal); R10.9 Unspecified abdominal pain; N43.3 Hydrocele, unspecified; J44.9 Chronic obstructive pulmonary disease, unspecified; F17.200 Nicotine dependence, unspecified, uncomplicated; Z79.899 Other long term (current) drug therapy; Z91.048 Other nonmedicinal substance allergy status
CPT/HCPCS: 36415; 93005; 80053; 82150; 82550; 82553; 84484; 85025; 85610; 85730; 81003; 71046; 74177; 99285; 96374; 96375; 96361; J2930; Q9967

== ENCOUNTER 2018-05-28 06:36 | Emergency (ER) | payer OTHER ==
[2018-05-28 06:44] VITALS: RESP 16
[2018-05-28] MEDS ORDERED: SODIUM CHLORIDE 0.9% 1,000 ML IV STA (07:11)
[2018-05-28] MEDS ORDERED: DICYCLOMINE 20 MG TAB PO STA (07:12)
--- NOTE | 2018-05-28 07:17 | ED ---
Abdominal Pain HPI - General Chief Complaint: Abdominal Pain Stated Complaint: abd pain Time Seen by Provider: 05/28/18 07:06 Source: patient, RN notes reviewed Mode of arrival: ambulatory Limitations: no limitations - History of Present Illness Initial Comments: This a 62-year-old male presents emergency Department chief complaint abdominal pain. Patient states started after a bowel movement this morning. Patient states he had some mild mid abdominal cramping. Patient states pain has subsided some but still has not completely alleviate itself. He states his bowel movement this morning was normal for him. Patient denies any nausea, vomiting, fever, chills, chest pain, shortness breath, dysuria or hematuria. Patient states that he had a recent CAT scan on for abdominal pain which natural any acute abnormality's. Patient states she's had 2 prior inguinal hernias on the right and states that he needs another one. Patient denies any other complaints. - Related Data Home Medications Medication Instructions Recorded Confirmed Finasteride 5 mg PO DAILY 02/17/14 05/11/18 Allopurinol [Zyloprim] 300 mg PO DAILY 04/03/14 05/11/18 Escitalopram [Lexapro] 10 mg PO DAILY 04/03/14 05/11/18 Cholecalciferol (Vitamin D3) 2,000 unit PO DAILY 07/12/17 05/11/18 [Vitamin D3] Docusate [Colace] 100 mg PO DAILY 07/12/17 05/11/18 Calcium Carbonate [Tums] 1,000 mg PO DAILY 05/11/18 05/11/18 Previous Rx's Medication Instructions Recorded Tamsulosin HCl [Flomax] 0.4 mg PO DAILY #30 cap 02/03/15 Allergies Allergy/AdvReac Type Severity Reaction Status Date / Time iodine Allergy Rash/Hives Verified 05/28/18 06:44 paper tape Allergy Rash/Hives Uncoded 05/28/18 06:44 Review of Systems ROS Statement: Those systems with pertinent positive or pertinent negative responses have been documented in the HPI. ROS Other: All systems not noted in ROS Statement are negative. Past Medical History Past Medical History: COPD, Pneumonia Additional Past Medical History / Comment(s): emphysema, kidney stones, osteoporosis, recent pneumonia History of Any Multi-Drug Resistant Organisms: None Reported Past Surgical History: Hernia Repair Additional Past Surgical History / Comment(s): vasectomy Past Anesthesia/Blood Transfusion Reactions: No Reported Reaction Past Psychological History: No Psychological Hx Reported Smoking Status: Current every day smoker Past Alcohol Use History: None Reported Past Drug Use History: None Reported General Exam Limitations: no limitations General appearance: alert, in no apparent distress Head exam: Present: atraumatic, normocephalic, normal inspection Eye exam: Present: normal appearance, PERRL, EOMI. Absent: scleral icterus, conjunctival injection, periorbital swelling ENT exam: Present: normal exam, normal oropharynx, mucous membranes moist Neck exam: Present: normal inspection, full ROM. Absent: tenderness, meningismus, lymphadenopathy Respiratory exam: Present: normal lung sounds bilaterally. Absent: respiratory distress, wheezes, rales, rhonchi, stridor Cardiovascular Exam: Present: regular rate, normal rhythm, normal heart sounds. Absent: systolic murmur, diastolic murmur, rubs, gallop, clicks GI/Abdominal exam: Present: soft, tenderness (Very minimal midabdominal tenderness), normal bowel sounds. Absent: distended, guarding, rebound, rigid Back exam: Absent: CVA tenderness (R), CVA tenderness (L) Skin exam: Present: warm, dry, intact, normal color. Absent: rash Course Vital Signs 05/28/18 06:41 Temperature 97.4 F L Pulse Rate 69 Respiratory 16 Rate Blood Pressure 121/73 O2 Sat by Pulse 97 Oximetry - Reevaluation(s) Reevaluation #1: 05/28/18 08:08 Patient reevaluated states that symptoms have improved. Patient updated on results. Medical Decision Making - Medical Decision Making 62-year-old male presents emergency department for abdominal pain after bowel movement. Patient's labwork is unremarkable, x-ray shows normal gas pattern. Patient's abdomen is soft nontender this time. Patient will be discharged with follow-up. Did recommend colonoscopy in which she does have one scheduled secondary second bout of abdominal pain. - Lab Data Result diagrams: 05/28/18 07:20 05/28/18 07:20 Lab Results 05/28/18 05/28/18 05/28/18 Range/Units 07:20 07:20 07:20 WBC 5.2 (3.8-10.6) k/uL RBC 4.70 (4.30-5.90) m/uL Hgb 15.4 (13.0-17.5) gm/dL Hct 47.0 (39.0-53.0) % MCV 100.0 (80.0-100.0) fL MCH 32.7 (25.0-35.0) pg MCHC 32.7 (31.0-37.0) g/dL RDW 13.3 (11.5-15.5) % Plt Count 165 (150-450) k/uL Neutrophils % 65 % Lymphocytes % 23 % Monocytes % 6 % Eosinophils % 2 % Basophils % 1 % Neutrophils # 3.4 (1.3-7.7) k/uL Lymphocytes # 1.2 (1.0-4.8) k/uL Monocytes # 0.3 (0-1.0) k/uL Eosinophils # 0.1 (0-0.7) k/uL Basophils # 0.0 (0-0.2) k/uL Sodium 138 (137-145) mmol/L Potassium 4.3 (3.5-5.1) mmol/L Chloride 104 (98-107) mmol/L Carbon Dioxide 27 (22-30) mmol/L Anion Gap 7 mmol/L BUN 20 (9-20) mg/dL Creatinine 0.76 (0.66-1.25) mg/dL Est GFR (CKD-EPI)AfAm >90 (>60 ml/min/1.73 sqM) Est GFR (CKD-EPI)NonAf >90 (>60 ml/min/1.73 sqM) Glucose 93 (74-99) mg/dL Calcium 9.8 (8.4-10.2) mg/dL Total Bilirubin 0.6 (0.2-1.3) mg/dL AST 25 (17-59) U/L ALT 35 (21-72) U/L Alkaline Phosphatase 47 (38-126) U/L Total Protein 6.8 (6.3-8.2) g/dL Albumin 4.0 (3.5-5.0) g/dL Amylase 59 (30-110) U/L Lipase 35 (23-300) U/L Urine Color Light Yellow Urine Appearance Clear (Clear) Urine pH 6.5 (5.0-8.0) Ur Specific [place] 1.002 (1.001-1.035) Urine Protein Negative (Negative) Urine Glucose (UA) Negative (Negative) Urine Ketones Negative (Negative) Urine Blood Negative (Negative) Urine Nitrite Negative (Negative) Urine Bilirubin Negative (Negative) Urine Urobilinogen <2.0 (<2.0) mg/dL Ur Leukocyte Esterase Negative (Negative) Disposition Clinical Impression: Abdominal pain Disposition: HOME SELF-CARE Condition: Stable Instructions: Abdominal Pain (ED) Additional Instructions: Please return to the Emergency Department if symptoms worsen or any other concerns. Is patient prescribed a controlled substance at d/c from ED?: No Referrals: Conner Diaz MD [Primary Care Provider] - 1-2 days Time of Disposition: 08:09
[2018-05-28 07:39] LABS: Appearance,Urine Clear (Clear); Bilirubin,Urine Negative (Negative); Blood,Urine Negative (Negative); Color,Urine Light Yellow; Glucose,Urine (UA) Negative (Negative); Ketones,Urine Negative (Negative); Leukocyte Esterase,Urine Negative (Negative); Nitrite,Urine Negative (Negative); PH, Urine 6.5 (5.0-8.0); Protein,Urine Negative (Negative); Specific Gravity,Urine 1.002 (1.001-1.035); Urobilinogen,Urine <2.0 mg/dL (<2.0)
[2018-05-28 07:45] LABS: Basophils % (A) 1 %; Eosinophils # (A) 0.1 k/uL (0-0.7); Eosinophils % (A) 2 %; HGB 15.4 gm/dL (13.0-17.5); Lymphocytes # (A) 1.2 k/uL (1.0-4.8); Lymphocytes % (A) 23 %; MCH 32.7 pg (25.0-35.0); MCHC 32.7 g/dL (31.0-37.0); Mean Platelet Volume 7.1; Monocytes # (A) 0.3 k/uL (0-1.0); Monocytes % (A) 6 %; Neutrophils # (A) 3.4 k/uL (1.3-7.7); Neutrophils % (A) 65 %; Platelet Count 165 k/uL (150-450); RDW 13.3 % (11.5-15.5); WBC 5.2 k/uL (3.8-10.6)
--- NOTE | 2018-05-28 07:51 | XR ---
EXAMINATION TYPE: XR KUB DATE OF EXAM: 05/28/2018 7:43 AM CLINICAL HISTORY: Abdominal pain TECHNIQUE: Single upright image of the abdomen is obtained. COMPARISON: None. FINDINGS: Scattered gas is seen in nondilated small bowel loops. Gas and fecal material is seen in no ndilated colon. There is no visceromegaly, pneumoperitoneum, or abnormal calcification appreciated. T he lung bases are clear and the osseous structures are intact. Moderate femoral acetabular arthropath y is seen bilaterally. IMPRESSION: Nonobstructive bowel gas pattern.
[2018-05-28 07:54] LABS: ALT 35 U/L (21-72); AST 25 U/L (17-59); Alkaline Phosphatase 47 U/L (38-126); Amylase 59 U/L (30-110); Anion Gap 7 mmol/L; Blood Urea Nitrogen 20 mg/dL (9-20); Calcium 9.8 mg/dL (8.4-10.2); Carbon Dioxide 27 mmol/L (22-30); Chloride 104 mmol/L (98-107); Glucose 93 mg/dL (74-99); Lipase 35 U/L (23-300); Potassium 4.3 mmol/L (3.5-5.1); Sodium 138 mmol/L (137-145); Total Bilirubin 0.6 mg/dL (0.2-1.3); Total Protein 6.8 g/dL (6.3-8.2)
[2018-05-28 08:26] VITALS: BP 105/70; PULSE 53; TEMP 97.5
== END 2018-05-28 08:26 | disposition home or self-care (01) ==
LOC: EC 06:36
DX: R10.9 Unspecified abdominal pain (principal); Z87.442 Personal history of urinary calculi; F17.200 Nicotine dependence, unspecified, uncomplicated; Z79.899 Other long term (current) drug therapy; Z88.8 Allergy status to other drugs, medicaments and biological substances; Z91.048 Other nonmedicinal substance allergy status
CPT/HCPCS: 36415; 74018; 80053; 81003; 82150; 83690; 85025; 96360; 99284

== ENCOUNTER → 2018-08-10 | Day surgery (SDC) | payer OTHER ==
[2018-08-08 18:14] VITALS: BMI 20.5
[~2018-08-10] MED LIST changes: -EPINEPHrine 1 MG/ML 1 ML AMP SQ PRN; +GLYCOPYRROLATE 0.2 MG/ML 2 ML VIAL ONE; -HYDROCORTISONE SUCCINATE 100 MG/2 ML VIAL IV PRN; +LACTATED RINGERS 1,000 ML IV SCH; +LIDOCAINE 1% 20 ML VIAL (10MG/ML) FOR IV START INTRADERMA ONE; +PROPOFOL 10 MG/ML 20 ML VIAL IV ONE; -SODIUM CHLORIDE 0.9% 500 ML in EMPTY BAG 1 BAG IV PRN; -ZOLEDRONIC ACID 5 MG in SODIUM CHLORIDE 0.9% 100 ML IV NR; -diphenhydrAMINE 50 MG/ML 1 ML VIAL IVP NR
[2018-08-10 08:04] VITALS: TEMP 97.4
--- NOTE | 2018-08-10 09:15 | P.GSHP ---
History of Present Illness H&P Date: 08/10/18 Chief Complaint: Colon cancer screening Patient today for colonoscopy. He has had some recent atypical abdominal pains but no change in bowel habits. No rectal bleeding or melena. Has not had a previous colonoscopy. No family history colon cancer. Past Medical History Past Medical History: COPD, Musculoskeletal Disorder, Pneumonia Additional Past Medical History / Comment(s): emphysema, kidney stones X15, osteoporosis. DISC PROB & FX IN LOWER BACK. HX SEVERE ABD PAIN EPISODES IN PAST FEW MONTHS; HX CONSTIPATION. PASSES ALOT OF GAS. History of Any Multi-Drug Resistant Organisms: None Reported Past Surgical History: Hernia Repair Additional Past Surgical History / Comment(s): Vasectomy. PARDEEP ING HERNIA REPAIR. Past Anesthesia/Blood Transfusion Reactions: No Reported Reaction, Motion Sickness Smoking Status: Current every day smoker - Past Family History Mother Family Medical History: No Reported History Medications and Allergies Home Medications Medication Instructions Recorded Confirmed Type Finasteride 5 mg PO DAILY 02/17/14 08/08/18 History Allopurinol [Zyloprim] 300 mg PO DAILY 04/03/14 08/08/18 History Escitalopram [Lexapro] 10 mg PO DAILY 04/03/14 08/08/18 History Tamsulosin HCl [Flomax] 0.4 mg PO DAILY #30 cap 02/03/15 08/08/18 Rx Cholecalciferol (Vitamin D3) 1,000 unit PO DAILY 07/12/17 08/08/18 History [Vitamin D3] Calcium Carbonate [Tums] 1,500 mg PO DAILY 05/11/18 08/08/18 History Sennosides/Docusate Sodium 1 each PO DAILY 08/08/18 08/08/18 History [Docusate Sodium-Sennosides Tab] Allergies Allergy/AdvReac Type Severity Reaction Status Date / Time iodine Allergy Rash/Hives Verified 08/10/18 07:52 merbromin Allergy Rash/Hives Verified 08/10/18 07:52 [From Mercurochrome] wool Allergy Rash/Hives Verified 08/10/18 07:52 paper tape Allergy Rash/Hives Uncoded 08/10/18 07:52 Surgical - Exam Vital Signs Temp Pulse Resp BP Pulse Ox 97.4 F L 73 16 111/63 98 08/10/18 08:01 08/10/18 08:01 08/10/18 08:01 08/10/18 08:01 08/10/18 08:01 Physical exam: General: Well-developed, well-nourished HEENT: Normocephalic, sclerae nonicteric Abdomen: Nontender, nondistended Extremities: No edema Neuro: Alert and oriented Assessment and Plan (1) Colon cancer screening Narrative/Plan: Will proceed with colonoscopy at this time. Current Visit: Yes Status: Acute Code(s): Z12.11 - ENCOUNTER FOR SCREENING FOR MALIGNANT NEOPLASM OF COLON SNOMED Code(s): 813764421
--- NOTE | 2018-08-10 09:36 | P.PCN ---
Date of Procedure: 08/10/18 Procedure(s) Performed: PREOPERATIVE DIAGNOSIS: Colon cancer screening POSTOPERATIVE DIAGNOSIS: Multiple polyps PROCEDURE: Colonoscopy with snare polypectomy ANESTHESIA: MAC SURGEON: Darien Tyler M.D. SPECIMENS: Polyps ENDOSCOPIC PROCEDURE: The patient was placed on the endoscopy table in the left decubitus position. The Olympus colonoscope was inserted into the anus and passed under direct visualization to the base of the cecum. The appendiceal orifice was visualized. From that point the scope was slowly withdrawn inspecting all surfaces carefully. In the cecum there were 2 sessile polyps removed using the snare with cautery technique. In the hepatic flexure there were 2 small polyps removed using the snare with cautery technique. In the mid transverse colon another polyp was identified and removed using the snare with cautery technique. The remainder of the transverse descending sigmoid and rectum appeared normal. There was no visible diverticulosis. Digital rectal examination was normal. The patient was taken to the recovery room in stable condition per anesthesia guidelines. RECOMMENDATIONS: Await biopsy results. Recommend follow-up colonoscopy 5 years.
[2018-08-10 09:39] VITALS: RESP 17
[2018-08-10 09:48] VITALS: BP 98/68; PULSE 86
== END ==
LOC: ORWHC2ENDO 07:37
PROVIDERS: ATTEND Surgery
DX: Z12.11 Encounter for screening for malignant neoplasm of colon (principal); D12.0 Benign neoplasm of cecum; D12.3 Benign neoplasm of transverse colon; J43.9 Emphysema, unspecified; M81.0 Age-related osteoporosis without current pathological fracture; F39 Unspecified mood [affective] disorder; Z87.01 Personal history of pneumonia (recurrent); F17.200 Nicotine dependence, unspecified, uncomplicated; Z87.442 Personal history of urinary calculi; Z79.899 Other long term (current) drug therapy; Z88.8 Allergy status to other drugs, medicaments and biological substances; Z91.048 Other nonmedicinal substance allergy status
CPT/HCPCS: 88305; 45385; J2704

== ENCOUNTER → 2018-11-05 | Outpatient (CLI) | payer OTHER ==
[2018-11-05 16:01] LABS: HCT 40.8 % (39.0-53.0); HGB 13.7 gm/dL (13.0-17.5); MCH 33.9 pg (25.0-35.0); MCHC 33.6 g/dL (31.0-37.0); MCV 100.8 fL (80.0-100.0); Mean Platelet Volume 8.6; Platelet Count 148 k/uL (150-450); RBC 4.05 m/uL (4.30-5.90); RDW 13.6 % (11.5-15.5); WBC 5.7 k/uL (3.8-10.6)
== END | disposition home or self-care (01) ==
LOC: LABPAT 15:17
PROVIDERS: ATTEND Surgery
DX: Z01.818 Encounter for other preprocedural examination (principal); Z01.812 Encounter for preprocedural laboratory examination; K46.9 Unspecified abdominal hernia without obstruction or gangrene
CPT/HCPCS: 36415; 85027; 93005

== ENCOUNTER 2018-11-07 08:23 | Day surgery (SDC) | payer OTHER ==
[2018-11-05 10:06] VITALS: BMI 20.2
[~2018-11-07 08:23] MED LIST changes: +DEXAMETHASONE SOD PHOSPHATE 10 MG/ML 1 ML VIAL IV ONE; -GLYCOPYRROLATE 0.2 MG/ML 2 ML VIAL ONE; +HEPARIN SODIUM,PORCINE 5,000 UNIT/ML 1 ML VIAL SQ ONE; -LACTATED RINGERS 1,000 ML IV SCH; -LIDOCAINE 1% 20 ML VIAL (10MG/ML) FOR IV START INTRADERMA ONE; +LIDOCAINE 1% 20 ML VIAL (10MG/ML) FOR IV START INTRADERMA PRN; +MIDAZOLAM 2 MG/2 ML VIAL IV PRN; +ONDANSETRON 4 MG/2 ML VIAL IVP ONE; -PROPOFOL 10 MG/ML 20 ML VIAL IV ONE; +SCOPOLAMINE 1.5MG/72HR PATCH TRANSDERM ONE; +ceFAZolin IN SWFI 2 GM/20 ML SYRINGE IVP ONE
[2018-11-07] MEDS: LACTATED RINGERS 1,000 ML IV SCH (09:15)
[2018-11-07] MEDS ORDERED: LIDOCAINE 1% 20 ML VIAL (10MG/ML) FOR IV START INTRADERMA ONE (09:15)
[2018-11-07] MEDS ORDERED: ROCURONIUM BROMIDE 10 MG/ML 10 ML VIAL IV ONE (09:41)
[2018-11-07] MEDS ORDERED: DEXAMETHASONE SOD PHOS (MDV) 100 MG/10 ML VIAL ONE (09:41)
[2018-11-07] MEDS ORDERED: fentaNYL (PF) 50 MCG/ML 2 ML AMP ONE (09:41)
[2018-11-07] MEDS ORDERED: ONDANSETRON 4 MG/2 ML VIAL ONE (09:41)
[2018-11-07] MEDS ORDERED: GLYCOPYRROLATE 0.2 MG/ML 2 ML VIAL ONE (09:41)
[2018-11-07] MEDS ORDERED: SUCCINYLCHOLINE CHLORIDE 100 MG/5 ML SYR IV ONE (09:41)
[2018-11-07] MEDS ORDERED: LIDOCAINE 1% INJ 10MG/ML (20 ML MDV) ONE (09:41)
[2018-11-07] MEDS ORDERED: NEOSTIGMINE 1 MG/ML 10 ML VIAL ONE (09:41)
[2018-11-07] MEDS ORDERED: PROPOFOL 10 MG/ML 20 ML VIAL IV ONE (09:41)
[2018-11-07] MEDS ORDERED: KETOROLAC 30 MG/ML 1 ML VIAL ONE (09:41)
[2018-11-07] MEDS ORDERED: MIDAZOLAM 2 MG/2 ML VIAL ONE (09:41)
[2018-11-07] MEDS ORDERED: BUPIVACAIN-EPI 0.5%-1:200,000 30 ML VIAL SQ ONE ×2 (10:11→10:28)
[2018-11-07] MEDS ORDERED: LACTATED RINGERS 1,000 ML IV ONE ×2 (11:36)
[2018-11-07] MEDS ORDERED: HYDROcodone/APAP 5-325MG 1 EACH TAB PO PRN (11:52)
[2018-11-07] MEDS ORDERED: NALOXONE 0.4 MG/ML 1 ML VIAL IV PRN (11:52)
--- NOTE | 2018-11-07 12:03 | P.OP ---
Date of Procedure: 11/07/18 Procedure(s) Performed: PREOPERATIVE DIAGNOSIS: Recurrent right inguinal hernia POSTOPERATIVE DIAGNOSIS: Recurrent right femoral hernia PROCEDURE: Laparoscopic repair recurrent right femoral hernia with the da Luz robot assistance with mesh SURGEON: Nayeli EBL: Minimal ANESTHESIA: General COMPLICATIONS: None OPERATIVE PROCEDURE: Patient was placed in the operating table in the supine position. The patient was placed under general anesthesia. The abdomen was prepped and draped in usual sterile fashion. A small curvilinear supraumbilical incision was made. The fascia was retracted anteriorly with [place] forceps. The Veress needle was inserted. The saline drop test was normal. Insufflation took place to 15 mmHg. A 5 mm trocar was placed into the peritoneal cavity. This was later switched to a 12 mm trocar. 2 additional 8 mm trochars were placed in the right upper quadrant and left upper quadrant under visualization. The robotic arms were then brought in and docked into place. The fenestrated bipolar was used in the left arm and the laparoscopic shahnaz was utilized in the right arm. A 30 12 mm scope was used in the up position. The peritoneal cavity was inspected. The patient had evidence of recurrent hernia on the right hand side. Upon inspection this appeared to be in the femoral space. The defect was quite large measuring approximately 3 cm in diameter. The patient also had a very small indirect hernia present there. The previously placed Prolene hernia system mesh was visualized medially. There was also a similar mesh identified on the left side. There was no evidence of hernia recurrence on the left side. The right side was then addressed. The peritoneum was incised in a horizontal fashion cephalad to the internal inguinal ring. Following that careful dissection of the preperitoneal space took place. This took place using both electrocautery, sharp dissection but primarily blunt dissection. Visualization of the pubic tubercle and Maury's ligament took place medially. Full dissection took place laterally as well. The hernia sac was fully dissected. It should be noted that the peritoneum was very adherent to the overlying mesh. The dissection was somewhat more challenging than normal given the large femoral hernia. Caution around the iliac vessels was taken. The peritoneum was mobilized more proximally on the iliac vessels then normally is required for that we would have adequate space for seating of the mesh. Once we had adequate space the 15 x 10 progrip mesh was advanced into the preperitoneal space and flattened out appropriately to cover all potential hernia sites. No sutures were used. The peritoneal defect was then closed using a locking 2-0 VLok suture. The hernia sac itself was incorporated into our peritoneal closure medially to help prevent future recurrence. A small defect in the peritoneum was closed using a [id number] 3-0 Vicryl stitch. The pneumoperitoneum was then evacuated. The fascia at the 12 mm site was closed using the [place] technique and an 0 Vicryl stitch. The skin of all 3 sites was closed using a 4-0 Monocryl stitch. Skin glue was then applied. At the completion of the procedure we did identify more than usual subcutaneous gas present from our insufflation. All trochars however were in the appropriate location. I suspect this tracked from the extensive preperitoneal dissection itself. DISPOSITION: Stable to recovery room
[2018-11-07 12:08] VITALS: TEMP 97.2
[2018-11-07] MEDS: HYDROmorphone 0.5 MG/0.5 ML SYRINGE IVP PRN ×2 (12:10→12:22)
[2018-11-07 12:34] VITALS: RESP 16
[2018-11-07] MEDS ORDERED: TAMSULOSIN 0.4 MG CAP.ER.24H PO ONE (14:39)
[2018-11-07 14:42] VITALS: BP 113/66; PULSE 60
== END 2018-11-07 15:18 | disposition home or self-care (01) ==
LOC: OR 08:23
PROVIDERS: ATTEND Surgery
DX: K41.91 Unilateral femoral hernia, without obstruction or gangrene, recurrent (principal); N40.0 Benign prostatic hyperplasia without lower urinary tract symptoms; M81.0 Age-related osteoporosis without current pathological fracture; J44.9 Chronic obstructive pulmonary disease, unspecified; F17.200 Nicotine dependence, unspecified, uncomplicated; Z91.048 Other nonmedicinal substance allergy status; Z79.899 Other long term (current) drug therapy; Z87.01 Personal history of pneumonia (recurrent); Z98.52 Vasectomy status
CPT/HCPCS: 49659; C1781; J2250; J1644; J1100 ×2; J2710; J2405; J2001; J3010; J1885; J0330; J2704; J1170; J0690

== ENCOUNTER → 2019-04-26 | Outpatient (CLI) | payer OTHER ==
[~2019-04-26] MED LIST changes: -DEXAMETHASONE SOD PHOSPHATE 10 MG/ML 1 ML VIAL IV ONE; -HEPARIN SODIUM,PORCINE 5,000 UNIT/ML 1 ML VIAL SQ ONE; -LIDOCAINE 1% 20 ML VIAL (10MG/ML) FOR IV START INTRADERMA PRN; -MIDAZOLAM 2 MG/2 ML VIAL IV PRN; -ONDANSETRON 4 MG/2 ML VIAL IVP ONE; -SCOPOLAMINE 1.5MG/72HR PATCH TRANSDERM ONE; +SODIUM CHLORIDE 0.9% 500 ML 500 ML in EMPTY BAG 1 BAG IV PRN; +ZOLEDRONIC ACID 5 MG in SODIUM CHLORIDE 0.9% 100 ML IV NR; -ceFAZolin IN SWFI 2 GM/20 ML SYRINGE IVP ONE
[2019-04-26 10:26] VITALS: BP 104/69; PULSE 65; RESP 16; TEMP 97.8
== END | disposition home or self-care (01) ==
LOC: PROCWHC3 09:32
PROVIDERS: ATTEND Family Medicine
DX: M81.0 Age-related osteoporosis without current pathological fracture (principal)

== ENCOUNTER → 2022-04-04 | Outpatient (CLI) | payer BC, MEDICARE ==
[~2022-04-04] MED LIST changes: -SODIUM CHLORIDE 0.9% 500 ML 500 ML in EMPTY BAG 1 BAG IV PRN
[2022-04-04 10:17] VITALS: BP 110/71; PULSE 86; RESP 16; TEMP 97.6
[2022-04-04] MEDS: SODIUM CHLORIDE 0.9% 500 ML 500 ML in EMPTY BAG 1 BAG IV PRN ×2 (10:18→10:21)
== END ==
LOC: PROCWHC3 10:05
PROVIDERS: ATTEND Family Medicine
DX: M81.0 Age-related osteoporosis without current pathological fracture (principal); Z91.048 Other nonmedicinal substance allergy status; Z91.018 Allergy to other foods; Z91.041 Radiographic dye allergy status; Z88.6 Allergy status to analgesic agent; Z91.011 Allergy to milk products; F17.200 Nicotine dependence, unspecified, uncomplicated; E66.9 Obesity, unspecified; Z68.21 Body mass index [BMI] 21.0-21.9, adult
CPT/HCPCS: 96365; J3489

== ENCOUNTER → 2022-04-04 | Outpatient (CLI) | payer MEDICARE, BC ==
--- NOTE | 2022-04-04 13:02 | CTL ---
EXAMINATION TYPE: CT Low Dose Lung DATE OF EXAM ORDERED: 04/04/2022 HISTORY: Z87.891 personal hx tobacco use . Lung cancer screening CT DLP: 64.4 mGycm Automated exposure control for dose reduction was used. SCREENING VISIT: First screening visit. COMPARISON: CT chest 09/10/2014, CT abdomen pelvis 05/11/2018. TECHNIQUE: Low dose computed tomography scan was performed through the chest at 1 mm thick sections a nd reconstructed images in multiple planes at 1 mm and [address] DIAGNOSTIC QUALITY: Satisfactory FINDINGS: LUNG NODULES: Right middle lobe 3 mm pulmonary nodule (series 4, image 235). LUNGS: COPD: Severity: Moderate Fibrosis: Severity: Mild Lymph nodes: None Other findings: None RIGHT PLEURAL SPACE: Effusion: None Calcification: None Thickening: None Pneumothorax: None LEFT PLEURAL SPACE: Effusion: None Calcification: None Thickening: None Pneumothorax: None HEART: Heart Size: Normal Coronary Calcification: Small Pericardial Effusion: None OTHER FINDINGS: Upper abdomen: Increase in size of right hepatic cyst measuring 1.9 cm. Additional left hepatic cysts are stable. Bony thorax: Stable anterior wedge compression deformity of the L2 vertebral body. Supraclavicular region: None Other: None IMPRESSION: 1. Right middle lobe 3 mm pulmonary nodule. 2. Emphysematous and fibrotic changes demonstrated. CT LUNG RAD AND CT CHEST RECOMMENDATION: Lung-Rad 2 Benign Appearance or Behavior: Continue annual sc reening with LDCT in 12 months. S Modifier (other clinically significant findings): None
== END | disposition home or self-care (01) ==
LOC: RADCTMAIN 09:48
PROVIDERS: ATTEND Family Medicine
DX: Z12.2 Encounter for screening for malignant neoplasm of respiratory organs (principal); J43.9 Emphysema, unspecified; Z87.891 Personal history of nicotine dependence
CPT/HCPCS: 71271

== ENCOUNTER → 2022-06-10 | Outpatient (CLI) | payer BC, MEDICARE ==
--- NOTE | 2022-06-10 22:51 | BD ---
EXAMINATION TYPE: Axial Bone Density DATE OF EXAM: 06/10/2022 COMPARISON: 03/23/2017 CLINICAL HISTORY: 66 years year old Male. ICD-10 CODE: M81.0 AGE-RELATED OSTEOPOROSIS Height: 67.5 IN Weight: 135 LBS FRAX RISK QUESTIONS: History of Fracture in Adulthood: RT WRIST AGE 38; RT TIB/FIB AGE 56; LT WRIST AGE 17 Secondary Osteoporosis: Current Tobacco Use: YES RISK FACTORS HISTORY OF: History of Wrist Fracture: RT WRIST AGE 38; LT WRIST AGE 17 Active: YES Diet low in dairy products/other sources of calcium: YES MEDICATIONS: Osteoporosis Medications: YES Which medication: RECLAST How Lon+ YEARS Additional Medications: VIT D, STOOL SOFTENER, FLOMAX, ANTI DEPRESSANT, KIDNEY STONE MEDS, EXAM MEASUREMENTS: Bone mineral densitometry was performed using the [employer] System. Bone mineral density as measured about the Lumbar spine is: ----- L1-L4(G/cm2): 0.772 T Score Values are as follows: ----- L1: -3.8 ----- L2: -2.9 ----- L3: -3.5 ----- L4: -3.5 ----- L1-L4: -3.4 Bone mineral density has: Decreased -0.2% since study of: 03/23/2017 Bone mineral density about the R hip (g/cm2): 0.739 Bone mineral density about the L hip (g/cm2): 0.706 T Score values are as follows: -----R Neck: -2.2 -----L Neck: -2.4 -----R Total: -2.6 -----L Total: -2.6 Bone mineral density has: Increased 4.8% since study of: 03/23/2017 FRAX%s: The graph provided illustrates a 24.9 chance for a major osteoporotic fx and a 12.9 chance fo r the hips probability for fx in 10 years time. IMPRESSION: Osteoporosis (T Score less than -2.5). There is increased fracture risk and therapy is usually indicated based on age. Re-Screen 1-2 years. NOTE: T-SCORE=SD OF THE YOUNG ADULT MEAN.
== END | disposition home or self-care (01) ==
LOC: RADBDWWP 09:11
PROVIDERS: ATTEND Family Medicine
DX: M81.0 Age-related osteoporosis without current pathological fracture (principal)
CPT/HCPCS: 77080